=== PATIENT | female | born 1940 | race Caucasian/White ===

== ENCOUNTER 2018-04-23 14:28 | Emergency (ER) | payer MEDICARE, OTHER ==
[~2018-04-23] VITALS: Ht 177.8 cm; Wt 69.4 kg
--- NOTE | 2018-04-23 14:45 | NUR ---
kathy card writer hand at bedside for eval.
--- NOTE | 2018-04-23 14:47 | NUR ---
pt wheeled to er bed 1o c/o r shoulder/ susan pain s/p mechanical trip and fall. pt denies head trauma. placed on monitor. vss. awaiting md gordon.
[2018-04-23] MEDS ORDERED: HYDROCODONE/APAP 5/325MG 1 EACH TABLET ONE (14:56)
[2018-04-23] MEDS ORDERED: ONDANSETRON 4 MG TAB.RAPDIS ONE (14:57)
[2018-04-23] MEDS ORDERED: ONDANSETRON 4 MG TAB.RAPDIS SL ONE (15:00)
[2018-04-23] MEDS ORDERED: HYDROCODONE/APAP 5/325MG 1 EACH TABLET PO ONE (15:00)
[2018-04-23] MEDS ORDERED: BUME1TAB5 PO (15:55)
[2018-04-23] MEDS ORDERED: MAGN400T26 PO (15:55)
[2018-04-23] MEDS ORDERED: DICL50TA9 PO (15:55)
[2018-04-23] MEDS ORDERED: TRAZ-182 PO (15:55)
[2018-04-23] MEDS ORDERED: AMLO10TA2 PO (15:55)
[2018-04-23] MEDS ORDERED: FOLI0.4T2 PO (15:55)
[2018-04-23] MEDS ORDERED: LEVO112T2 PO (15:55)
[2018-04-23] MEDS ORDERED: ASPI-1169 PO (15:55)
[2018-04-23] MEDS ORDERED: FLAX100025 PO (15:55)
[2018-04-23] MEDS ORDERED: POTA20PA34 PO (15:55)
[2018-04-23] MEDS ORDERED: CHOL100044 PO (15:55)
[2018-04-23] MEDS ORDERED: MELO-105 PO (15:55)
[2018-04-23] MEDS ORDERED: CYAN10009 PO (15:55)
[2018-04-23] MEDS ORDERED: EZET10TA14 PO (15:55)
--- NOTE | 2018-04-23 15:56 | NUR ---
radiology at bedside for chest xray.
[2018-04-23 16:03] LABS: CALCIUM, SERUM 9.3 mg/dL (8.5-10.1); CARBON DIOXIDE 31 mmol/L (21-32); CHLORIDE 102 mmol/L (98-107); CREATININE 1.3 mg/dL (0.6-1.3); GLUCOSE 115 mg/dL (74-106); POTASSIUM 3.4 mmol/L (3.5-5.1); SODIUM SERUM 136 mmol/L (136-145); UREA NITROGEN, BLOOD 26 mg/dL (7-18)
[2018-04-23 16:08] LABS: INR 0.96 (0.85-1.15)
--- NOTE | 2018-04-23 17:02 | NUR ---
SHOULDER SLING PROVIDED. Patient discharged to home in stable condition. Written and verbal after care instructions given. Patient verbalizes understanding of instruction.IV removed. Catheter intact and site benign. Pressure and 4x4 applied to site. No bleeding noted.
[2018-04-23 17:07] VITALS: BP 115/60
[2018-04-23 17:15] LABS: EOSINOPHILS % (AUTO) 1.2 % (0.0-6.0); HEMATOCRIT 39 % (33-45); LYMPHOCYTES % (AUTO) 8.5 % (20.0-44.0); MEAN CORPUSCULAR HEMOGLOBIN 30 PG (26.0-33.0); MEAN CORPUSCULAR HGB CONC 33 g/dl (31.0-36.0); MEAN CORPUSCULAR VOLUME 92 fL (82-100); MONOCYTES # (AUTO) 0.8 /CMM (0.1-1.30); MONOCYTES % (AUTO) 6.4 % (2.0-12.0); NEUTROPHILS # (AUTO) 9.9 /CMM (1.8-8.9); NEUTROPHILS % (AUTO) 83.9 % (43.0-81.0); PLATELET COUNT (AUTO) 232 /CMM (150-450); RDW COEFFICIENT OF VARIATION 14.9 (11.5-15.0); RED BLOOD CELL COUNT(AUTO) 4.28 MIL/uL (4.0-5.2); WHITE BLOOD COUNT (AUTO) 11.8 K/uL (4.3-11.0)
== END 2018-04-23 17:10 | disposition home or self-care (01) ==
LOC: ER 14:33
DX: S42.201A Unspecified fracture of upper end of right humerus, initial encounter for closed fracture (principal); E03.9 Hypothyroidism, unspecified; I10 Essential (primary) hypertension; Z79.82 Long term (current) use of aspirin; W01.0XXA Fall on same level from slipping, tripping and stumbling without subsequent striking against object, initial encounter; Y93.89 Activity, other specified; Y92.89 Other specified places as the place of occurrence of the external cause; Y99.8 Other external cause status
CPT/HCPCS: 36415; 71045; 73030; 80048; 85025; 85730; 87081; 93005; 99285; A4606; Q0162; Z7610

== ENCOUNTER 2018-04-26 22:00 | Emergency (ER) | payer MEDICARE, OTHER ==
[~2018-04-26] VITALS: Ht 157.5 cm; Wt 76.2 kg
[~2018-04-26 22:00] MED LIST: AMLO10TA2 PO; ASPI-1169 PO; BUME1TAB5 PO; CHOL100044 PO; CYAN10009 PO; DICL50TA9 PO; EZET10TA14 PO; FLAX100025 PO; FOLI0.4T2 PO; LEVO112T2 PO; MAGN400T26 PO; MELO-105 PO; POTA20PA34 PO; TRAZ-182 PO
[2018-04-26 22:10] VITALS: BP 131/69
[2018-04-26] MEDS ORDERED: HYDROCODONE/APAP 5/325MG 1 EACH TABLET PO ONE (23:00)
[2018-04-26] MEDS ORDERED: HYDROCODONE/APAP 5/325MG 1 EACH TABLET ONE (23:08)
[2018-04-26] MEDS ORDERED: ACETAMINOPHEN ES 500 MG TABLET ONE (23:34)
== END 2018-04-27 00:40 | disposition home or self-care (01) ==
LOC: ER 22:02
DX: S42.291A Other displaced fracture of upper end of right humerus, initial encounter for closed fracture (principal); I10 Essential (primary) hypertension; G89.29 Other chronic pain; E03.9 Hypothyroidism, unspecified; Z79.82 Long term (current) use of aspirin; W18.39XA Other fall on same level, initial encounter; Y93.89 Activity, other specified; Y92.89 Other specified places as the place of occurrence of the external cause; Y99.8 Other external cause status
CPT/HCPCS: 29105; 71045; 73060; 99284; A4606; Z7610